=== PATIENT | female | born 2000 | race Caucasian/White ===

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

== ENCOUNTER 2019-02-27 16:30 | Outpatient (RCR) | payer BC, MEDICAID, SELFPAY ==
--- NOTE | 2019-01-23 14:43 | HP.PTEVAL_ITS ---
Patient's Visit Information ILANA VALERO is a 18 year old F referred to Physical Therapy by Juliano Gutierrez DO with a diagnosis of L MCL strain. Date of Evaluation: 01/09/19 Physical Therapist: Miles Guo DPT - Visit Plan Frequency: 2x /Week Duration: 4-6 Weeks Plan: Start with general mobility, stretching and quad strengthenign in aquatic setting. Progress to land as tolerated. Add in ROM for HEP as tolerated. - Subjective Findings: Pt. is here today for her initial evaluation with diagnosis of L MCL strain. Pt. reports falling down her stairs last year and again this year. Pt. reports hurting her L knee in the process. Xray was negative for acute injury, no edema. She did have an MRI showing an MCL strain. Pt. reports having difficulty walking, standing, and doing most activities. Pt. denies N/T in either LE. PT. reports pain at medial knee. Pt. reports no positions of comfort, but reports also being to work out at times at local gym. She is hopeful to reduce symptoms in order to get back to taking care of her children without issues. - Pain L knee Pain Intensity (Out of 10): 6 Pain Intensity Range: 3, 10 - Objective POSTURE: Pt. stands with sligth loss in TKE on LLE with increased wt. shift to R side. PALPATION: Pt. has increased pain with palpation of medial and lateral joint lines. Pt. has increased pain at popliteal fossa and superior to patella. NEURO: normal throughout. ROM: L knee- 0-8-78deg. pt. reports high levels of pain with attempts to increase ROM in either direction. MMT: Pt. has 4/5 strength throughout L knee and hip with reports of increased pain with all testing. GAIT: Pt. ambulates with antalgic pattern during L stance phase. Decreased L knee flexion during swing phase as well. STAIRS: step to pattern throughout only loading RLE. - Goals Goal 1:: Pt. to be I with HEP. Goal Time Frame: 4-6 Weeks Goal 2:: Pt. to have increased L knee ROM to 0-0-130deg without increase in symptoms. Goal Time Frame: 4-6 Weeks Goal 3:: Pt. to ambulate unlimited distances with normalized pattern without increase in symptoms. Goal Time Frame: 4-6 Weeks Goal 4:: Pt. to sleep throughout the night without increase in symptoms. Goal Time Frame: 4-6 Weeks Goal 5:: Pt. to have increased LLE strength increased to 5/5 without increase in symptoms. Goal Time Frame: 4-6 Weeks Goal 6:: Pt. to negotiate steps with amrit bergmanut incerase in symptoms. Goal Time Frame: 4-6 Weeks - Rehabilitation Potential Physical Therapy Diagnosis: Pt. reports having greater pain at lateral aspect of knee this date, most likely from changing gait pattern. Pt. does have decreased muscle strength throughotu LLE and altered gait pattern. She also has limited ROM secondary to increased pain, but no end feel noted. Pt. would benefit from PT to increase tolerance to functional mobility and improve strength to reduce stress on knee joint with all functional mobility. Rehabilitation Potential: Good - Anticipated Interventions Patient/Client Instruction: Educate patient on: Condition, Plan of Care, Risk Factors, Benefits of Fitness Program For the Purpose of:: To improve health and function, To foster healthy habits, To improve decision making, To facilitate caregiver knowledge, To improve self management, To prevent re-injury, To improve ability to perform tasks related to life management Therapeutic Exercise to Include: Strength training, Endurance training, Balance training, Coordination, Postural training, Flexibilty training, Gait and locomotor training, In an aquatic setting, Passive ROM, Active ROM For the Purpose of:: To decrease pain, To decrease swelling/inflammation, To increase ROM, To improve nutrient delivery to tissue, To improve muscle performance and motor function, To improve ability to perform ADL's, To increase tolerance to activity/condition/position, To improve gait and locomotor functions, To improve health of tissue, To decrease soft tissue restriction Thank you for the opportunity to evaluate your patient. For Medicare and Medicare HMO plans, please review the plan of care and approve it. It will need to be FAXED BACK to us at [phone] for Medicare purposes. For Medicare only, by signing this I certify the plan of care. Please let me know if there are questions or concerns regarding this plan of care. Physician Signature: Date:
--- NOTE | 2019-02-08 17:20 | HP.PTREVAL ---
Juliano Gutierrez, , It has been my pleasure to treat ILANA VALERO over the last 6 visits for L MCL strain. Please see the progress note below for an update on the physical therapy plan of care! Subjective: Pt. reports no major change with aquatic therapy. Pt. reprots continued to L lateral kne pain, and some medial knee pain. She also reports that she is having a lot of locking up at times and popping in her knee. Objective/Function: L knee ROM: 0-5-108deg increased lateral knee pain. LLE MMT: ankel 5/5 throughout; knee- ext 4/5 increased lateral and medial knee pain; hip- fleionx 4/5, abd 4/5, ext 4/5. GAIT: pt. ambulates without AD, but lacks TKE and has minimal knee flexion of LLE during swing phase. Pt. reprots increased pain with wall WBing activities. Plan Plan: Aquatic therapy did not provide much reduction in symptoms. I would like to trial some modalities and ROM to tolerance to increase ability of L knee ROM allowing for icnreased toelrance to all functional mobility. Add in quad sets, and gentle ROM. May use IFC and ice, hip strengthening as tolerated. Goals Goal 1:: Pt. to be I with HEP. Goal Time Frame: 4-6 Weeks Goal Progress: Progressing Goal 2:: Pt. to have increased L knee ROM to 0-0-130deg without increase in symptoms. Goal Time Frame: 4-6 Weeks Goal Progress: Progressing Goal 3:: Pt. to ambulate unlimited distances with normalized pattern without increase in symptoms. Goal Time Frame: 4-6 Weeks Goal Progress: Not Progressing Goal 4:: Pt. to sleep throughout the night without increase in symptoms. Goal Time Frame: 4-6 Weeks Goal Progress: Progressing Goal 5:: Pt. to have increased LLE strength increased to 5/5 without increase in symptoms. Goal Time Frame: 4-6 Weeks Goal Progress: Progressing Goal 6:: Pt. to negotiate steps with reciprocal patern wtihtout incerase in symptoms. Goal Time Frame: 4-6 Weeks Goal Progress: Not Progressing Anticipated Interventions Patient/Client Instruction: Educate patient on: Condition, Plan of Care, Risk Factors, Benefits of Fitness Program For the Purpose of:: To improve health and function, To foster healthy habits, To improve decision making, To facilitate caregiver knowledge, To improve self management, To prevent re-injury, To improve ability to perform tasks related to life management Therapeutic Exercise to Include: Strength training, Endurance training, Balance training, Coordination, Postural training, Flexibilty training, Gait and locomotor training, In an aquatic setting, Passive ROM, Active ROM For the Purpose of:: To decrease pain, To decrease swelling/inflammation, To increase ROM, To improve nutrient delivery to tissue, To improve muscle performance and motor function, To improve ability to perform ADL's, To increase tolerance to activity/condition/position, To improve gait and locomotor functions, To improve health of tissue, To decrease soft tissue restriction Please do not hesitate to contact me at [phone] by phone or if you have questions or concerns regarding this new plan of care! Sincerely, LEONIDES LirianoT
--- NOTE | 2019-07-04 15:02 | HP.PT.NRP ---
HP - Discharge Summary (1) - Patient Information ILANA VALERO was seen in my office for initial evaluation on 01/09/19. The following Plan of Care was established for this patient: Initial Frequency: 2x /Week Initial Duration: 4-6 Weeks - Anticipated Interventions Patient/Client Instruction: Educate patient on: Condition, Plan of Care, Risk Factors, Benefits of Fitness Program For the Purpose of:: To improve health and function, To foster healthy habits, To improve decision making, To facilitate caregiver knowledge, To improve self management, To prevent re-injury, To improve ability to perform tasks related to life management Therapeutic Exercise to Include: Strength training, Endurance training, Balance training, Coordination, Postural training, Flexibilty training, Gait and locomotor training, In an aquatic setting, Passive ROM, Active ROM For the Purpose of:: To decrease pain, To decrease swelling/inflammation, To increase ROM, To improve nutrient delivery to tissue, To improve muscle performance and motor function, To improve ability to perform ADL's, To increase tolerance to activity/condition/position, To improve gait and locomotor functions, To improve health of tissue, To decrease soft tissue restriction This patient was last seen in our office 02/27/19. Pertinent comments regarding their Physical therapy will appear below: Pt. was seen for her L MCL strain. Pt. made some mild progress with aquatic and land exercises. Pt. has not been seen in several months and will be DC from PT at this point in time. At this point I will be discontinuing this patient from physical therapy. I would be happy to see this patient again in the future if found appropriate by the physician. Thank you! Miles Guo, ROLANDO
== END 2019-02-27 19:00 | disposition home or self-care (01) ==
LOC: PT 16:30
PROVIDERS: Family Provider Family Medicine; PCP Family Medicine; Referring Provider Family Medicine; Visit Provider Family Medicine
DX: M25.562 Pain in left knee (principal)
CPT/HCPCS: 97014; 97110; 97113; 97161; 97530; G0283

== ENCOUNTER 2019-04-16 20:00 | Emergency (ER) | payer BC, MEDICAID, SELFPAY ==
[2019-04-16 20:01] VITALS: BP 118/61; PULSE 108; RESP 16; TEMP 37.2; O2SAT 97; BMI 27.4
--- NOTE | 2019-04-16 20:05 | RAD_ITS ---
STUDY: X-RAY - RIGHT HAND REASON FOR EXAM: Female, 19 years old. Fall. Pain. TECHNIQUE: 3 view(s) of the hand. COMPARISON: 04/18/2016 FINDINGS: There is no evidence of fracture or dislocation. There are no significant degenerative changes. There are no radiodense foreign bodies. RAD/Hand Min 3 Views IMPRESSION: No fracture or dislocation. Electronically Signed: Petar Adams, at 20:20 EDT Tel , Service support ,
--- NOTE | 2019-04-16 20:45 | ED.DCSUM_ITS ---
- ER Visit Summary Date of Service: 04/16/19 Chief Complaint: Right thumb injury History of Present Illness: The patient is a 19 F who states that she sustained a fall today resulting in a hyperextension of her right thumb. She has pain along the dorsum of the thumb onto the hand. She denies other injuries. Physical Examination: Afebrile vital signs stable Patient's hand exam shows that the thumb is held in extension. She can start to flex it but stops because of pain. She has no pain along the thenar eminence or on the volar aspect of the thumb. Her pain seems to be localized on the dorsum. Neurovascular intact. Test Results: Hand films were negative for fracture. Emergency Department Course and Treatment: Patient will use a thumb spica splint. She will follow-up if not improving return if worsening or concerns we talked about ngozi's thumb and other potential ligamentous injuries. Impression: 1. Right thumb sprain This note was generated with Flasht[employer] dictation software. It may contain incorrect words, spelling, and punctuation that were not noted in review of the chart prior to signing ED Disposition - Plan for ED Patient: Disposition: Home or Assisted Living Instructions: Sprain Finger Referrals: Juliano Gutierrez DO [Primary Care Provider] - 10-14 Days if not better
[2019-04-16 21:09] VITALS: BP 110/78; PULSE 98; RESP 18; O2SAT 100
== END 2019-04-16 21:09 | disposition home or self-care (01) ==
LOC: ED 20:49
PROVIDERS: Emergency Provider Emergency Medicine; Family Provider Family Medicine; PCP Family Medicine
DX: S63.601A Unspecified sprain of right thumb, initial encounter (principal); W19.XXXA Unspecified fall, initial encounter; Y93.9 Activity, unspecified; Z72.0 Tobacco use
CPT/HCPCS: 73130; 99282

== ENCOUNTER → 2019-07-26 15:24 | Outpatient (CLI) | payer BC, MEDICAID, SELFPAY ==
[2019-07-26 20:22] LABS: Chlamydia Trachomatis by PCR Negative (Negative); Neisserai gonorrhoeae by PCR Negative (Negative); Probe Check PASS; Sample Adequacy Control PASS; Specimen Processing Control PASS
== END ==
PROVIDERS: Visit Provider Obstetrics & Gynecology
DX: Z11.3 Encounter for screening for infections with a predominantly sexual mode of transmission (principal)
CPT/HCPCS: 87491; 87591

== ENCOUNTER → 2020-07-02 15:27 | Outpatient (CLI) | payer BC, MEDICAID, SELFPAY ==
[2020-07-07 14:52] LABS: HPV Reflexed? NOT INDICATED
== END ==
PROVIDERS: Visit Provider Obstetrics & Gynecology
DX: Z12.4 Encounter for screening for malignant neoplasm of cervix (principal)
CPT/HCPCS: 87077; 87086; 87088; 87186; 88175; G0145

== ENCOUNTER → 2021-04-22 15:31 | Outpatient (CLI) | payer BC, MEDICAID, SELFPAY ==
[2021-04-26 22:06] LABS: Chlamydia By Nucleic Acid AMP Negative (Negative)
[2021-04-27 07:56] LABS: Gonococcus By Nucleic Acid AMP Negative (Negative)
== END ==
PROVIDERS: Visit Provider Obstetrics & Gynecology
DX: Z11.3 Encounter for screening for infections with a predominantly sexual mode of transmission (principal)
CPT/HCPCS: 87491; 87591

== ENCOUNTER → 2021-11-11 | Outpatient (CLI) | payer BC, MEDICAID, SELFPAY | END | disposition home or self-care (01) | LOC: LABSPEC 16:29 | PROVIDERS: Visit Provider Obstetrics & Gynecology | DX: R10.32 Left lower quadrant pain (principal) | CPT/HCPCS: 87086; 87088; 87186 ==

== ENCOUNTER 2022-07-21 07:55 | Emergency (ER) | payer BC, MEDICAID, SELFPAY ==
[2022-07-21 07:55] VITALS: BP 131/55; PULSE 150; RESP 20; TEMP 36.6; O2SAT 98; BMI 37.8
--- NOTE | 2022-07-21 08:35 | RAD_ITS ---
STUDY: X-RAY - UNILATERAL RIBS ( LEFT ) WITH CHEST REASON FOR EXAM: Female, 22 years old. injury PT GOT KICKED IN THE SIDE RIBS TECHNIQUE - RIBS: 4 view(s) of the ribs. TECHNIQUE - CHEST: Single PA view of the chest. COMPARISON: Chest x-ray dated July 19, 2017 FINDINGS - RIBS: Normal visualized ribs without a demonstrated fracture. FINDINGS - CHEST: The lungs are clear and expanded. There is no demonstrated pleural abnormality. Normal size heart. Normal mediastinum and jad. Normal visualized pulmonary arteries. Normal visualized aortic arch and descending thoracic aorta. Normal visualized thoracic spine. Normal visualized ribs, clavicles, and shoulders. There is no demonstrated abnormality of the visualized soft tissue structures of the upper abdomen. RAD/Ribs Uni Min 3V w/PA Chest IMPRESSION: RIBS: Normal x-ray examination of the ribs. CHEST: Normal x-ray examination of the chest. Electronically Signed: Dank Osborne MD at 10:07 EST ,
--- NOTE | 2022-07-21 08:44 | EX.ED.DYSGE1 ---
HPI History of Present Illness Chief Complaint: Headache Narrative Narrative: Presents with multiple complaints. Primary complaint today 3-day history of migraine symptoms. Nontraumatic frontal headaches photophobia and phonophobia. No aura. Using Tylenol and Tylenol PM with no relief for which it typically does help. Last dose was yesterday. No history of gastric ulcers or kidney injury. Edition 5 days ago traumatic left rib injury. Playing games with senior other and friends, excellently kicked in the left rib. No dyspnea. Pain with palpation. No vomiting or diarrhea. No fevers. Prior similar symptoms: Yes PFSH PFSH Medical History Migraine Home Medications NK 04/16/19 [History Last Taken Unknown] Allergy/AdvReac Type Severity Reaction Status Date / Time venom-honey bee Allergy Severe Swelling Verified 07/21/22 07:58 [bee venom (honey bee)] Social History Smoking Status: Current every day smoker tobacco type: cigarettes ROS ROS ED Constitutional Constitutional ED: Denies chills, fever(s) or sweats Eyes Eyes: Denies change in vision ENT ENT ED: Denies dysphagia or sore throat Cardiovascular Cardiovascular: Denies chest pain, leg edema, palpitations or racing heartbeat Respiratory/Chest Respiratory/Chest: Reports other Details: Left lower rib injury ; Denies cough, dyspnea or dyspnea on exertion Gastrointestinal Gastrointestinal: Denies abdominal pain, diarrhea, nausea or vomiting Genitourinary Genitourinary ED: Denies dysuria, hematuria or urinary frequency Musculoskeletal Musculoskeletal: Denies back pain, extremity pain or neck pain Integumentary Denies rash or wounds Neurologic Neurologic: Reports headache(s); Denies paresthesias or weakness EXAM Physical Exam Const Vital Signs: 07/21/22 07:55 07/21/22 10:15 Temperature 98 F 98.5 F Temperature Source Temporal Temporal Pulse Rate 150 H 110 H Respiratory Rate 20 H 16 Blood Pressure 131/55 H 110/64 Blood Pressure Mean 80 79 Pulse Ox 98 96 Oxygen Delivery Method Room Air Room Air Positive well nourished and well developed General Appearance ED: well developed and NAD HEENT Reports moist mucous membranes normocephalic and atraumatic Eyes PERRL, EOMs intact bilaterally and conjunctivae normal General Eye ED: Yes normal appearance of both eyes Neck no lymphadenopathy and supple Neck Narrative: No meningismus General: Negative for tenderness Chest Wall Chest Narrative: Tender palpation left lower ribs with no crepitus or ecchymosis. Chest: tenderness Resp normal respiratory effort and normal air movement Resp Narrative: Symmetric breath sounds Effort and Inspection: symmetric chest movement; Negative for respiratory distress Cardio regular rhythm and no murmurs Rate: tachycardic Peripheral Pulses: pulses 2+ throughout GI normal to inspection, nondistended, normoactive bowel sounds and non-tender Palpation: Negative for guarding or rebound tenderness present Back/Spine no CVA tenderness and no thoracic nor lumbar tenderness Extremity normal to inspection General Extremety ED: Negative for edema or tenderness General Extremity: Negative for edema Neuro oriented x3, CN's II-XII intact bilaterally and no sensory deficits noted Sensorium / Orientation: awake and alert Skin no rashes or lesions noted and no wounds MDM MDM MDM Narrative Medical decision making narrative: Patient had multiple complaints. Initial migraine symptoms. Clinically low suspicion for any meningitis or subarachnoid hemorrhage. Denies any trauma. She has no meningismus. Edition had left lower rib injury contusion versus fracture concern she had symmetric breath sounds. Patient tachycardic in triage she given IV fluids migraine cocktail of Reglan Benadryl and Toradol. Left rib series along with PA chest obtained interpreted by myself and read by radiology negative for any fractures. No pneumothorax. Reevaluation clinically feeling better heart rate is improved. Patient is will be discharged with outpatient follow-up. All questions were answered. Radiography Diagnostic Testing: Clinical Impression(s) from Imaging Studies Ribs w/Chest X-Ray 07/21/22 08:35 IMPRESSION: RIBS: Normal x-ray examination of the ribs. CHEST: Normal x-ray examination of the chest. Electronically Signed: Dank Osborne MD at 10:07 EST Reading Location ID and State: [facility] / [place] , Service support , Discharge Plan Triage Chief Complaint: Headache ED Provider: Unruly Merino Dx/Rx/DC Orders Clinical Impression: Migraine headache, Contusion of rib on left side Instructions: ED, Migraine (Classical), ED Bruise, Rib Prescriptions: No Action NK Primary Care Provider: Care Physician,No Primary Referrals: Alondra Wiseman [Non-Staff] - 1 Week if not improving Care Physician,No Primary [Primary Care Provider] - Activity Restrictions/Additional Instructions: X-rays negative for any fracture or pneumothorax of your ribs and chest. Continue ibuprofen or Advil up to 600 mg as needed every 6 hours. Follow-up with your doctor. Disposition Disposition: Home, Self Care
[2022-07-21] MEDS: Metoclopramide 10 MG/2 ML Vial IV (09:06)
[2022-07-21] MEDS: DiphenhydrAMINE 50 MG/ML Syringe 25 MG IV (09:06)
[2022-07-21] MEDS: 0.9% Normal Saline 1,000 ML 1000 ML IV (09:06)
[2022-07-21] MEDS: Ketorolac 15 MG/ML Vial IV (09:06)
[2022-07-21 10:15] VITALS: BP 110/64; PULSE 110; RESP 16; TEMP 36.9; O2SAT 96
== END 2022-07-21 10:38 | disposition home or self-care (01) ==
PROVIDERS: Emergency Provider Emergency Medicine; Visit Provider Emergency Medicine
DX: G43.909 Migraine, unspecified, not intractable, without status migrainosus (principal); S20.212A Contusion of left front wall of thorax, initial encounter; F17.210 Nicotine dependence, cigarettes, uncomplicated; X58.XXXA Exposure to other specified factors, initial encounter
CPT/HCPCS: 71101; 96361; 96374; 96375; 99283; J7030

== ENCOUNTER → 2022-07-22 | Outpatient (CLI) | payer BC, MEDICAID, SELFPAY | END | disposition home or self-care (01) | LOC: LABSPEC 15:25 | PROVIDERS: Visit Provider Student in an Organized Health Care Education/Training Program | DX: R30.0 Dysuria (principal) | CPT/HCPCS: 87077; 87086; 87088; 87186 ==

== ENCOUNTER 2022-08-28 14:42 | Emergency (ER) | payer BC, MEDICAID, SELFPAY ==
[2022-08-28 14:43] VITALS: BP 117/70; PULSE 155; RESP 16; TEMP 36.6; O2SAT 99; BMI 30.2
--- NOTE | 2022-08-28 15:12 | CT_ITS ---
INDICATION: Right-sided abdominal pain. EXAMINATION: CT ABDOMEN AND PELVIS WITH CONTRAST - CT Abdomen And Pelvis W/ Contrast Injection TECHNIQUE: Helically acquired images were obtained of the abdomen and pelvis following IV contrast. A radiation dose optimization technique was used for this scan. IV Contrast dosage and agent: 100 mL of Isovue 370 Oral contrast: None. COMPARISON: November 06, 2014 FINDINGS: LOWER CHEST: Lung bases are clear. No cardiomegaly or pericardial effusion. LIVER: The liver is top normal in size but otherwise unremarkable. No focal mass. GALLBLADDER AND BILIARY TREE: No calcified gallstones. No gallbladder distension or wall edema. No intra- or extrahepatic biliary ductal dilation. PANCREAS: No focal cystic or solid mass. SPLEEN: Mild splenomegaly without mass. ADRENAL GLANDS: No nodules. KIDNEYS AND URETERS: Normal renal size and position. No hydronephrosis. Normal visualized ureters. PERITONEUM: No ascites or free air. No other fluid collection. BOWEL: Normal stomach. Normal small intestine. Normal colon. Normal appendix. LYMPH NODES: There is a 0.8 x 1.4 x 3 cm left periaortic lymph node best seen on image 56 of series 2 image 63 of series 601. No other significant retroperitoneal lymphadenopathy is noted. No mesenteric lymphadenopathy. VESSELS: Normal abdominal aorta. Normal IVC. URINARY BLADDER: Unremarkable. REPRODUCTIVE ORGANS: There is an IUD in satisfactory position within otherwise normal uterus. Bilateral cystic ovarian follicles. ABDOMINAL WALL: No discrete abdominal or pelvic wall hernia. BONES: No lytic or blastic abnormality. CT/Abdomen/Pelvis W IV Cont ONLY IMPRESSION: 1. Top normal size liver without mass. 2. Mild splenomegaly. 3. IUD in satisfactory position. 4. Left periaortic lymph node. This has enlarged from prior study where it appears normal in size. Etiology is uncertain. 5. Otherwise normal CT of the abdomen and pelvis. Electronically Signed: Maverick Daniel DO at 16:59 EST Reading Location ID and State: [address] [place] [address] Tel [phone], Service support ,
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
[2022-08-28] MEDS: 0.9% Normal Saline 1,000 ML 1000 ML IV (15:30)
[2022-08-28] MEDS: Ondansetron 4 MG/2 ML Vial IV (15:31)
[2022-08-28] MEDS: Morphine 4 MG/ML Syringe IV (15:31)
[2022-08-28 15:51] LABS: Absolute Lymphocyte Count 0.62 X10^3/uL (0.83-4.51); Absolute Neutrophil Count 11.3 X10^3/uL (2.0-7.7); Basophil# 0.03 X10^3/uL; Basophil% 0.2 % (0-1); Eosinophil# 0.01 X10^3/uL; Eosinophils% 0.1 % (0-5); Hematocrit 34.8 % (37-47); Hemoglobin 11.5 g/dL (12.0-15.0); Lymphocyte # 0.62 X10^3/ul (0.83-4.51); Lymphocyte % 4.8 % (19-41); Mean Corpuscular Hgb 30.7 pg (27.0-32.0); Mean Platelet Vol. 9.8 fl (6.2-12.0); Monocyte# 0.78 X10^3/uL; Monocyte% 6.1 % (0-10); NRBC Flagged by Analyzer 0 % (0-5); Neutrophil # 11.27 X10^3/uL (2.7-7.7); Neutrophil % 87.8 % (47-70); Platelet Count 260 K/mm3 (150-450); RBC Distribution Width CV 13.2 % (11.6-14.6); RBC Distribution Width SD 44.9 fl (35.1-43.9); Red Blood Count 3.74 M/mm3 (4.2-5.4); White Blood Count 12.8 K/mm3 (4.4-11.0)
[2022-08-28 16:08] LABS: ALB/GLOB Ratio 0.9 RATIO (0.9-2.4); AST(SGOT) 18 U/L (15-37); Alanine Aminotransfer ALT/SGPT 31 U/L (13-56); Albumin, Serum 3.6 g/dL (3.2-5.0); Alkaline Phosphatase 113 U/L (45-117); Anion Gap 8 (5-15); BUN 10 mg/dL (7-18); BUN/Creat Ratio 13.3 RATIO (10-20); Calcium,Total 9.5 mg/dL (8.5-10.1); Chloride 105 mmol/L (98-107); Creatinine, Serum 0.75 mg/dL (0.55-1.02); EST Glomerular Filtration Rate 101 mL/min (>60); Est Glom Filt Rate - Afr Amer 122 mL/min (>60); Estimated Creatinine Clearance 100.74 ml/min; Globulin 3.9 g/dL (2.2-4.2); Glucose 111 mg/dL (74-106); Lipase 88 U/L (73-393); Potassium 3.7 mmol/L (3.5-5.1); Protein, Total 7.5 g/dL (6.4-8.2); Sodium Level 139 mmol/L (136-145)
[2022-08-28 16:08] LABS: Mucous, Urine 0 SEEN /hpf (<or=2+); Squamous Epithelial Cells - UA 0 SEEN /hpf (5-10)
[2022-08-28 16:11] LABS: Color, Urine Yellow (Yellow); Glucose, Dipstick Normal (Normal); Ketone-Dipstick Negative (Negative); Leukocyte Esterase-Dipstick 500 /ul (Negative); Nitrite-Dipstick Negative (Negative); Occult Blood-Urine 150 /ul (Negative); Protein-Dipstick 30 mg/dl (Negative); Urine Bilirubin Dipstick Negative (Negative); Urine Clarity Clear (Clear); Urine Urobilinogen Normal (Normal)
[2022-08-28 16:16] LABS: Coarse Granular Cast 0 SEEN /lpf (0-5 /lpf); Fine Granular Cast- Urine 0 SEEN /lpf (0-5); Hyaline Cast 0 SEEN /lpf (0-5); Renal Epithelial Cells 0 SEEN /hpf (0-5); Transitional Epithelial - Ur 0 SEEN /hpf (0-5)
[2022-08-28 16:17] LABS: Internal QC Validated? YES +Cl - CLEAR BKGD; Pregnancy, Urine Negative Negative
[2022-08-28 16:31] LABS: Bacteria 1+ /hpf (None Seen); Red Blood Cells-Urine 0-5 SEEN /hpf (0-5); White Blood Cells 25-50 SEEN /hpf (0-5)
[2022-08-28] MEDS: HYDROmorphone 0.5 MG/0.5 ML SYRINGE IV (16:49)
--- NOTE | 2022-08-28 16:50 | EKG12_ITS ---
Test Reason : ABDOMINAL PAIN Blood Pressure : / mmHG Vent. Rate : 115 BPM Atrial Rate : 115 BPM P-R Int : 152 ms QRS Dur : 078 ms QT Int : 312 ms P-R-T Axes : 022 050 017 degrees QTc Int : 431 ms Sinus tachycardia Otherwise normal ECG Confirmed by BRAIN MUKHERJEE, LA ([id number]), newspaper copy editor PERICO PAIGE ([id number]) on 08/29/2022 12:14:08 PM Referred By: CHRIS Confirmed By:LA DE LA PAZ MD
[2022-08-28] MEDS: 0.9% Normal Saline 1,000 ML 999 ML IV (16:51)
[2022-08-28] MEDS: Ceftriaxone 1 GM/50 ML BAG IV (17:15)
== END 2022-08-28 17:51 | disposition home or self-care (01) ==
PROVIDERS: Nurse Practitioner; Emergency Provider Student in an Organized Health Care Education/Training Program; Visit Provider Student in an Organized Health Care Education/Training Program
DX: R10.9 Unspecified abdominal pain (principal); N39.0 Urinary tract infection, site not specified; Z87.891 Personal history of nicotine dependence
CPT/HCPCS: 74177; 80053; 81001; 81025; 83690; 85025; 87077; 87086; 87088; 87186; 93005; 96365; 96375; 99283; J7030; Q9967; A4216; J2405

== ENCOUNTER → 2022-09-02 | Outpatient (CLI) | payer BC, MEDICAID, SELFPAY ==
[2022-09-02 18:10] LABS: Absolute Lymphocyte Count 2.66 X10^3/uL (0.83-4.51); Absolute Neutrophil Count 4.3 X10^3/uL (2.0-7.7); Basophil# 0.05 X10^3/uL; Basophil% 0.7 % (0-1); Eosinophil# 0.13 X10^3/uL; Eosinophils% 1.7 % (0-5); Hemoglobin 11.7 g/dL (12.0-15.0); Lymphocyte # 2.66 X10^3/ul (0.83-4.51); Lymphocyte % 35.1 % (19-41); Mean Corp Hgb Conc 32.5 g/dL (32-36); Mean Corpuscular Hgb 30.5 pg (27.0-32.0); Mean Platelet Vol. 10.1 fl (6.2-12.0); Monocyte# 0.39 X10^3/uL; Monocyte% 5.1 % (0-10); NRBC Flagged by Analyzer 0 % (0-5); Neutrophil % 56.7 % (47-70); Platelet Count 301 K/mm3 (150-450); RBC Distribution Width CV 13.5 % (11.6-14.6); Red Blood Count 3.83 M/mm3 (4.2-5.4); White Blood Count 7.6 K/mm3 (4.4-11.0)
[2022-09-02 18:12] LABS: Color, Urine Yellow (Yellow); Glucose, Dipstick Normal (Normal); Ketone-Dipstick Negative (Negative); Leukocyte Esterase-Dipstick 25 /ul (Negative); Nitrite-Dipstick Negative (Negative); Occult Blood-Urine 150 /ul (Negative); Protein-Dipstick Negative (Negative); Specific Gravity, Urine 1.015 (1.002-1.030); Urine Bilirubin Dipstick Negative (Negative); Urine Clarity Clear (Clear); Urine Urobilinogen Normal (Normal); Urine pH 6.5 (5.0 - 8.0)
[2022-09-02 18:44] LABS: ALB/GLOB Ratio 0.8 RATIO (0.9-2.4); AST(SGOT) 19 U/L (15-37); Alanine Aminotransfer ALT/SGPT 31 U/L (13-56); Albumin, Serum 3.6 g/dL (3.2-5.0); Alkaline Phosphatase 99 U/L (45-117); Anion Gap 9 (5-15); BUN 11 mg/dL (7-18); BUN/Creat Ratio 15.5 RATIO (10-20); Calcium,Total 9.6 mg/dL (8.5-10.1); Chloride 104 mmol/L (98-107); Creatinine, Serum 0.71 mg/dL (0.55-1.02); EST Glomerular Filtration Rate 108 mL/min (>60); Est Glom Filt Rate - Afr Amer 130 mL/min (>60); Globulin 4.3 g/dL (2.2-4.2); Glucose 100 mg/dL (74-106); Lipase 175 U/L (73-393); Potassium 3.7 mmol/L (3.5-5.1); Protein, Total 7.9 g/dL (6.4-8.2); Sodium Level 139 mmol/L (136-145)
[2022-09-04 15:37] LABS: Immunoglobulin A < 5 mg/dL (87-352)
[2022-09-05 19:21] LABS: Endomysial Antibody IgA Negative (Negative); Immunoglobulin A < 5 mg/dL (87-352); t-Transglutaminase IgA <2 U/mL (0-3)
== END | disposition home or self-care (01) ==
LOC: BFHLAB 15:20
PROVIDERS: PCP Family Medicine; Visit Provider Family Medicine
DX: R10.9 Unspecified abdominal pain (principal); N39.0 Urinary tract infection, site not specified
CPT/HCPCS: 36415; 80053; 81002; 82784; 83516; 83690; 85025; 86140; 86255

== ENCOUNTER → 2022-09-05 | Outpatient (CLI) | payer BC, MEDICAID, SELFPAY | END | disposition home or self-care (01) | LOC: LABSPEC 08:27 | PROVIDERS: PCP Family Medicine; Visit Provider Family Medicine | DX: R10.9 Unspecified abdominal pain (principal); N39.0 Urinary tract infection, site not specified | CPT/HCPCS: 87086; 87088 ==

== ENCOUNTER → 2022-10-20 | Outpatient (CLI) | payer BC, MEDICAID, SELFPAY ==
[2022-10-20 12:38] LABS: Erythrocyte Sedimentation Rate 63 mm/hr (0-30)
[2022-10-20 12:41] LABS: Absolute Lymphocyte Count 2.02 X10^3/uL (0.83-4.51); Absolute Neutrophil Count 3.7 X10^3/uL (2.0-7.7); Basophil# 0.05 X10^3/uL; Basophil% 0.8 % (0-1); Eosinophil# 0.08 X10^3/uL; Eosinophils% 1.3 % (0-5); Hematocrit 33.9 % (37-47); Hemoglobin 11.1 g/dL (12.0-15.0); Lymphocyte # 2.02 X10^3/ul (0.83-4.51); Lymphocyte % 31.7 % (19-41); Mean Corp Hgb Conc 32.7 g/dL (32-36); Mean Corpuscular Hgb 29.7 pg (27.0-32.0); Mean Corpuscular Volume 90.6 fL (81-99); Mean Platelet Vol. 10.1 fl (6.2-12.0); Monocyte# 0.48 X10^3/uL; Monocyte% 7.5 % (0-10); NRBC Flagged by Analyzer 0 % (0-5); Neutrophil # 3.71 X10^3/uL (2.7-7.7); Neutrophil % 58.1 % (47-70); Platelet Count 305 K/mm3 (150-450); RBC Distribution Width CV 14.9 % (11.6-14.6); RBC Distribution Width SD 49.6 fl (35.1-43.9); Red Blood Count 3.74 M/mm3 (4.2-5.4); White Blood Count 6.4 K/mm3 (4.4-11.0)
[2022-10-20 13:01] LABS: ALB/GLOB Ratio 0.7 RATIO (0.9-2.4); AST(SGOT) 31 U/L (15-37); Alanine Aminotransfer ALT/SGPT 94 U/L (13-56); Albumin, Serum 3.5 g/dL (3.2-5.0); Alkaline Phosphatase 235 U/L (45-117); Anion Gap 6 (5-15); BUN 12 mg/dL (7-18); BUN/Creat Ratio 15.3 RATIO (10-20); Calcium,Total 9.6 mg/dL (8.5-10.1); Chloride 103 mmol/L (98-107); Creatinine, Serum 0.79 mg/dL (0.55-1.02); EST Glomerular Filtration Rate 96 mL/min (>60); Est Glom Filt Rate - Afr Amer 116 mL/min (>60); Globulin 4.7 g/dL (2.2-4.2); Glucose 100 mg/dL (74-106); Potassium 3.6 mmol/L (3.5-5.1); Protein, Total 8.2 g/dL (6.4-8.2); Sodium Level 135 mmol/L (136-145)
[2022-10-20 13:20] LABS: Hepatitis C Antibody Non-Reactive (Nonreactive)
[2022-10-21 15:28] LABS: ANTINUCLEAR ANTIBODIES DIRECT Negative (Negative)
== END | disposition home or self-care (01) ==
LOC: BFHLAB 10:13
PROVIDERS: PCP Family Medicine; Referring Provider Family Medicine; Visit Provider Family Medicine
DX: R50.9 Fever, unspecified (principal); R16.0 Hepatomegaly, not elsewhere classified; R10.9 Unspecified abdominal pain; R79.82 Elevated C-reactive protein (CRP)
CPT/HCPCS: 86235 ×5; 86225; 36415; 80053; 85025; 85652; 86038; 86140; 86803